=== PATIENT | male | born 1985 | race Caucasian/White ===

== ENCOUNTER 2018-06-27 10:28 | Outpatient (CLI) | payer OTHER | END 2018-06-27 10:38 | disposition home or self-care (01) | LOC: LAB 10:28 | DX: J10.1 Influenza due to other identified influenza virus with other respiratory manifestations (principal); N39.0 Urinary tract infection, site not specified; Z13.21 Encounter for screening for nutritional disorder; E05.00 Thyrotoxicosis with diffuse goiter without thyrotoxic crisis or storm ==

== ENCOUNTER 2018-06-28 12:55 | Outpatient (CLI) | payer OTHER | END 2018-06-28 13:39 | disposition home or self-care (01) | LOC: LAB 12:55 | DX: J10.1 Influenza due to other identified influenza virus with other respiratory manifestations (principal); N39.0 Urinary tract infection, site not specified; Z13.21 Encounter for screening for nutritional disorder; E05.00 Thyrotoxicosis with diffuse goiter without thyrotoxic crisis or storm ==